=== PATIENT | female | born 1970 | race Caucasian/White ===

== ENCOUNTER 2020-10-04 07:13 | Emergency (ER) | payer BC, SELFPAY ==
--- NOTE | ~2020-10-04 | CT_ITS ---
EXAMINATION: CT soft tissue neck w con DATE: 10/04/2020 09:39 INDICATION: Pain with swallowing after vomiting. Evaluate for perforation. TECHNIQUE: Computed tomography (CT) of the neck was performed with 75 mL Omnipaque-350 intravenous co ntrast. The dose-length product was 656.03 mGy-cm. Automated exposure control and iterative reconstru ction technique were employed. COMPARISON: None FINDINGS: There is no evidence for esophageal perforation. No pneumonia mediastinum. No evidence for intramural hematoma of the esophagus. Distal esophagus not included. Visualized lung parenchyma is un remarkable. Unremarkable thyroid gland. No lymphadenopathy. Incidental note is made of bilateral gloria st implants. Mild mucosal thickening of the ethmoid and right sphenoid sinuses. No significant pleura l or pericardial effusion identified. IMPRESSION: 1. No acute abnormality of the neck. No evidence for esophageal perforation. Reviewed, dictated and finalized at location A. NESS PLANNER
--- NOTE | ~2020-10-04 | XR_ITS ---
EXAMINATION: XR chest 1V 10/04/2020 08:25 INDICATION: Chest pain with swallowing PROCEDURE: AP portable chest COMPARISON: No prior studies for comparison. FINDINGS: The lungs are clear. The cardiomediastinal silhouette is within normal limits. There are no pleural effusions. There is no pneumothorax suspected. IMPRESSION: 1: NO ACUTE CARDIOPULMONARY DISEASE. Reviewed, dictated and finalized at location A. R ELECTRIC INSTALLER
[2020-10-04 07:24] VITALS: BP 177/119; PULSE 97; RESP 20; TEMP 36.7; O2SAT 100
--- NOTE | 2020-10-04 08:04 | PC.NURSE ---
EMESIS X1 ON THE FLOOR
--- NOTE | 2020-10-04 08:09 | ECG_ITS ---
Measurements Intervals Bath Rate: 82 P: 57 CO: 165 QRS: 28 QRSD: 88 T: 39 QT: 378 QTc: 443 Interpretive Statements SINUS RHYTHM DELAYED PRECORDIAL R/S TRANSITION BORDERLINE ECG Electronically Signed On 10-04-2020 10:41:29 PHYSICAL ANTHROPOLOGIST by Garth Sexton D.O.
--- NOTE | 2020-10-04 08:11 | ED.GENADULT ---
HPI - General Adult General Chief complaint: Unspecified Stated complaint: throat pain after vomiting Time Seen by Provider: 10/04/20 07:36 Source: patient Mode of arrival: ambulatory Limitations: no limitations History of Present Illness HPI narrative: This patient is a 49 year old female with history of anxiety and hypertension who presents for evaluation of sore throat. She states she drank some margaritas last night. This morning she felt like she needed to vomiting so she make herself vomiting. AFter this episode of emesis she states her throat was making a funny sound when she swallows. She also reports pain when she swallows. She denies chest pain, abdominal pain , or fever. She had no sore throat previous to vomiting. She reports she is nervous and she hyperventilating while waiting so she develop vomiting in ER. Related Data Home Medications Medication Instructions Recorded Confirmed calcium carbonate 500 mg calcium 500 mg PO DAILY 08/27/19 08/04/20 (1,250 mg) tablet vitamin E 200 unit capsule 800 unit PO DAILY cap 08/27/19 08/04/20 Allergies Allergy/AdvReac Type Severity Reaction Status Date / Time No Known Allergies Allergy Verified 10/04/20 07:27 Review of Systems Review of Systems: All systems reviewed & are unremarkable except as noted in HPI and below Constitutional: Constitutional: Denies body ache(s), Denies chills and Denies fever(s) ENT: Denies nasal congestion, Reports odynophagia, Denies throat swelling and Denies tongue swelling Respiratory: Respiratory: Denies cough Gastrointestinal: Gastrointestinal: Denies abdominal pain PMFSH Past Medical History Medical History (Updated 10/04/20 @ 11:53 by Radha Villegas MD) Essential hypertension Hyperlipidemia Family History Family History (Updated 05/28/16 @ 23:21 by DOCTOR UNKNOWN) Mother Patient's mother is in good health Father Patient's father is in good health Sibling Patient's brother is in good health Social History Social History Smoking status: Never smoker Alcohol intake: never Gender identity (if verbalized by the patient): Female Exam Const: General: cooperative, well developed and anxious Nutritional Appearance: well nourished Orientation/consciousness: oriented to person, oriented to place and oriented to time Limitations: no limitations HENMT: Head: normocephalic and atraumatic Face and sinus: sinuses nontender and face symmetric Mouth: Yes lip normal, Yes tongue normal, Yes oropharynx normal and Yes moist mucous membranes Throat: posterior oropharynx normal, tonsils normal and uvula midline Neck: Neck: full ROM, no lymphadenopathy, trachea midline and supple Lymphatic: no lymphadenopathy noted Chest: Chest palpation & inspection: normal inspection of the chest Resp: Effort & Inspection: normal respiratory effort and able to speak in complete sentences Auscultation: clear to auscultation bilaterally Cardio: Rate: regular rate Rhythm: regular rhythm Skin: General skin exam: normal color Neuro: General: patient oriented x3 Sensory Exam: normal sensation Course Reevaluation(s) Reevaluation #1: I have discussed with patient that CT was unremarkable. She states she feels better aft GI cocktail. I discussed she may have small superficial tear but no perforation or hematoma. Date: 10/04/20 Time: 11:49 Vital Signs Vital signs: Vital Signs Temperature 98.0 F 10/04/20 07:24 Pulse Rate 97 10/04/20 07:24 Respiratory Rate 20 10/04/20 07:24 Blood Pressure 177/119 H 10/04/20 07:24 Pulse Oximetry 100 10/04/20 07:24 Temperature 98.0 F 10/04/20 07:24 Pulse Rate 90 10/04/20 12:15 Respiratory Rate 20 10/04/20 12:15 Blood Pressure 172/108 H 10/04/20 12:15 Pulse Oximetry 100 10/04/20 12:15 Medical Decision Making Vital Signs Vital Signs: Vital Signs Temperature 98.0 F 10/04/20 07:24 Pulse Rate 97 10/04/20 07:24 Respiratory Rate
[2020-10-04] MEDS: PANTOPRAZOLE SODIUM IV 40 MG VIAL IV PUSH (08:12)
[2020-10-04] MEDS: ONDANSETRON INJ 4 MG/2 ML VIAL IV PUSH (08:12)
[2020-10-04 08:28] LABS: Basophils Percent Auto 0.6 % (0.2-1.2); Eosinophils Absolute Auto 0.1 K/mm3 (0-0.3); Eosinophils Percent Auto 0.9 % (0-4.4); Hematocrit 42.7 % (37.0-47.0); Hemoglobin 15.6 g/dL (12.0-15.0); Immature Granulocyte Absolute 0.02 K/mm3 (0.00-0.031); Immature Granulocyte Percent A 0.3 % (0-0.5); Lymphocytes Absolute Auto 1.11 K/mm3 (0.9-3.2); Lymphocytes Percent Auto 17.1 % (18.3-44.2); Mean Corpuscular HGB Conc 36.5 g/dl (32-36); Mean Corpuscular Hemoglobin 34.5 pg (26-34); Mean Corpuscular Volume 94.5 fl (80-100); Monocytes Absolute Auto 0.4 K/mm3 (0.1-0.6); Monocytes Percent Auto 5.5 % (2.6-8.5); Neutrophils Absolute Auto 4.9 K/mm3 (1.3-6.7); Neutrophils Percent Auto 75.6 % (45.5-73.1); Platelet Count Result 332 k/mm3 (150-375); Red Blood Count 4.52 M/mm3 (4.2-5.4); Red Cell Distribution Width 11.9 % (11.5-14.5); White Blood Count 6.5 K/mm3 (4.5-10.0)
[2020-10-04 08:32] LABS: Alanine Aminotransferase 24 U/L (4-35); Albumin Level 4.4 g/dL (3.5-5.1); Alkaline Phosphatase 65 U/L (38-126); Anion Gap 13 mmol/L (8-16); Aspartate Amino Transferase 27 U/L (14-36); Bilirubin,Total 0.4 mg/dL (0.2-1.3); Blood Urea Nitrogen 14 mg/dL (7-17); Calcium 9.3 mg/dL (8.4-10.2); Carbon Dioxide 24 mmol/L (22-30); Chloride 102 mmol/L (98-107); Estimated CRCL calculation 83 ml/min; Estimated Glomerular Filt Rate > 60; Glucose 116 mg/dL (65-105); Potassium 4.1 mmol/L (3.4-5.0); Sodium 139 mmol/L (137-145)
[2020-10-04 10:02] VITALS: BP 187/115; PULSE 86; RESP 20; O2SAT 99
[2020-10-04] MEDS: BELLADONNA ALK/PHENOB ELIX 10 ML, MAG HYDROX/ALUMINUM HYD/SIMETH 30 ML, LIDOCAINE HCL 2... PO (10:58)
[2020-10-04 11:01] VITALS: BP 178/114; PULSE 96; RESP 20; O2SAT 100
[2020-10-04 12:15] VITALS: BP 172/108; PULSE 90; RESP 20; O2SAT 100
== END 2020-10-04 12:18 | disposition home or self-care (01) ==
PROVIDERS: Emergency Provider General Practice; PCP Internal Medicine
DX: R13.10 Dysphagia, unspecified (principal); E78.5 Hyperlipidemia, unspecified; I10 Essential (primary) hypertension
CPT/HCPCS: 36415; 70491; 71045; 80053; 85025; 93005; 96374; 96375; 99284; A9270; C9113; J2405; Q9967

== ENCOUNTER 2021-03-03 10:33 | Outpatient (CLI) | payer OTHER, SELFPAY ==
[2021-03-03 11:07] LABS: Anion Gap 0 mmol/L (8-16); Blood Urea Nitrogen 16 mg/dL (7-17); Calcium 9.4 mg/dL (8.4-10.2); Carbon Dioxide 33 mmol/L (22-30); Chloride 106 mmol/L (98-107); Cholesterol 237 mg/dL (0-200); Estimated Glomerular Filt Rate > 60; Glucose 102 mg/dL (65-105); HDL Direct 77 mg/dL; Potassium 4.2 mmol/L (3.4-5.0); Sodium 139 mmol/L (137-145); Triglycerides 223 mg/dL (<150)
[2021-03-03 11:17] LABS: LDL Cholesterol Direct 122 mg/dL
== END 2021-03-03 10:34 | disposition home or self-care (01) ==
LOC: ANHLAB 10:35
PROVIDERS: PCP Internal Medicine; Visit Provider Nurse Practitioner
DX: E78.5 Hyperlipidemia, unspecified (principal); I10 Essential (primary) hypertension
CPT/HCPCS: 36415; 80048; 80061

== ENCOUNTER 2021-04-08 13:37 | Outpatient (CLI) | payer OTHER, SELFPAY ==
--- NOTE | ~2021-04-08 | US_ITS ---
EXAMINATION: US abdomen limited EXAM DATE: 04/08/2021 14:08 INDICATION: Right upper quadrant pain. TECHNIQUE: Multiple grayscale and Doppler images of the abdomen right upper quadrant were obtained (b y a technologist who performed the scan) and subsequently reviewed. There is no prior study for kevon gonzalez. FINDINGS: The pancreatic head and body are normal in appearance. The pancreatic tail is not visualized. The l iver has normal echogenicity and contour. There are no focal liver lesions identified. There is no evidence of intrahepatic biliary duct dilation. Portal venous flow was seen in the hepatopedal, nor mal direction and has normal Doppler waveform. No right-sided hydronephrosis. Common bile duct measures 5 mm, which is normal. Gallbladder is contracted with multiple small gallst ones. There is significantly thickened gallbladder wall thickening up to 1 cm. Patient did tell techn ologist she did not eat today and typically patients who are nothing by mouth have somewhat distended gallbladder rather than contracted gallbladder. These findings can be seen with cholecystitis but no sonographic Hsieh's sign was demonstrated (is patient on pain medicine?). IMPRESSION: Contracted stone filled gallbladder with wall thickening, nonspecific in absence of sonog raphic Hsieh's sign. If patient on pain medicine, could still be acute cholecystitis. If not, could indicate chronic cholecystitis. Clinical correlation, consider HIDA scan. Reviewed, dictated and finalized at location A. IMPRESSION: Contracted stone filled gallbladder with wall thickening, nonspecif ic in absence of sonographic Hsieh's sign. If patient on pain medicine, could still be acute cholecystitis. If not, could indicate chronic cholecystitis. Cli nical correlation, consider HIDA scan.
== END 2021-04-08 13:38 | disposition home or self-care (01) ==
LOC: ANHIMG 13:39
PROVIDERS: PCP Internal Medicine; Visit Provider Nurse Practitioner
DX: R10.11 Right upper quadrant pain (principal)
CPT/HCPCS: 76705

== ENCOUNTER 2021-04-16 08:17 | Outpatient (CLI) | payer OTHER, SELFPAY ==
[2021-04-16 09:12] LABS: Hematocrit 41.6 % (37.0-47.0); Hemoglobin 14.5 g/dL (12.0-15.0); Mean Corpuscular HGB Conc 34.9 g/dl (32-36); Mean Corpuscular Hemoglobin 33.7 pg (26-34); Mean Corpuscular Volume 96.7 fl (80-100); Mean Platelet Volume 9.3 fl (7.4-10.4); Platelet Count Result 303 k/mm3 (150-375); Red Cell Distribution Width 11.9 % (11.5-14.5); White Blood Count 4.6 K/mm3 (4.5-10.0)
[2021-04-16 09:21] LABS: EDCOVIDSCREEN Negative (Negative)
[2021-04-16 09:40] LABS: Alanine Aminotransferase 12 U/L (4-35); Albumin Level 4.3 g/dL (3.5-5.1); Alkaline Phosphatase 58 U/L (38-126); Amylase 87 U/L (30-110); Aspartate Amino Transferase 24 U/L (14-36); Bilirubin,Total 0.3 mg/dL (0.2-1.3); Lipase 172 U/L (23-300)
== END 2021-04-16 08:18 | disposition home or self-care (01) ==
LOC: ANHSURGERY 08:21
PROVIDERS: PCP Internal Medicine; Visit Provider Surgery
DX: Z01.812 Encounter for preprocedural laboratory examination (principal); Z20.822 Contact with and (suspected) exposure to COVID-19; K80.10 Calculus of gallbladder with chronic cholecystitis without obstruction
CPT/HCPCS: 36415; 80076; 82150; 83690; 85027; 87426; C9803

== ENCOUNTER 2021-04-17 00:52 | Day surgery (SDC) | payer OTHER, SELFPAY ==
[2021-04-15 15:05] VITALS: BMI 30.1
[2021-04-17] VITALS (7 sets, daily range): BP systolic 127–159; BP diastolic 78–93; PULSE 73–87; RESP 16–18; TEMP 36; O2SAT 97–100
[2021-04-17] MEDS: ACETAMINOPHEN 500 MG TABLET 1000 MG PO (07:16)
[2021-04-17] MEDS: LACTATED RINGERS 1,000 ML 30 ML IV CONT ×2 (07:25→10:00)
[2021-04-17] MEDS: KETOROLAC 15 MG/ML VIAL (*BKC) IV PUSH (07:26)
--- NOTE | 2021-04-17 08:15 | WPDHPUPDATE1 ---
History and Physical Update Update Date/Time: 04/17/21 08:15 History and Physical has been reviewed, including an updated exam of the patient. There are NO changes in the patient's condition. Risks, benefits, and alternatives have been discussed and questions answered. Patient agrees to proceed with procedure.
--- NOTE | 2021-04-17 08:25 | WPDANESEPPF ---
Anes - Initial Pre Proc Eval Procedure: Operation Date: 04/17/21 08:30 Proposed Procedures p Laparoscopic Cholecystectomy with Possible Intraoperative Cholangiogram, Possible Open - Husam Mattson MD Date/Time: 04/17/21 08:25 Surgeon: Husam Mattson MD Pre Op Diagnosis: chronic cholecystitis with stones Patient Data Age: 50 Gender: F Height: 5 ft 3 in Weight: 76 kg Last Vital Signs Temp 96.8 F L 04/17/21 06:57 Pulse 73 04/17/21 06:57 Resp 16 04/17/21 06:57 BP 152/93 H 04/17/21 06:57 Pulse Ox 97 04/17/21 06:57 Allergies Allergy/AdvReac Type Severity Reaction Status Date / Time No Known Allergies Allergy Verified 04/17/21 07:10 Home Medications Medication Instructions Recorded Confirmed Type vitamin E 200 unit capsule 800 unit PO DAILY cap 08/27/19 04/17/21 History calcium carbonate 600 mg (1,500 1 cap PO DAILY cap 03/03/21 04/17/21 History mg)-vitamin D3 500 unit capsule lisinopril 10 mg tablet See Rx Instructions .ROUTE 03/03/21 04/17/21 Rx .COMPLEX #90 tablet bupropion HCl 300 mg 24 hr tablet, 300 mg PO QAM #90 tablet 03/09/21 04/17/21 Rx extended release Patient hx anesthesia problems: post op nausea/vomiting Family hx anesthesia problems: none PMFSH Past Medical History Medical History (Updated 04/15/21 @ 09:38 by Paola Clements) Depression Essential hypertension Hyperlipidemia Surgical History Surgical History History of abdominal hysterectomy History of microdiscectomy Family History Family History (Updated 04/15/21 @ 08:39 by Christel Wilks CMA) Mother Patient's mother is in good health Father Patient's father is in good health Sibling Patient's brother is in good health Other Cerebrovascular accident Social History Social History Smoking status: Never smoker Alcohol intake: never Alcohol use details: TWO DRINKS PER MONTH Substance use: current Substance use type: marijuana Last use: 04/15/21 Living arrangements: with family Gender identity (if verbalized by the patient): Female Spiritual care concerns: No Anes - Eval Final PreProcedure Day of Procedure 04/17/21 08:25 Patient weight: overweight Heart: regular rate and rhythm Lungs: clear to auscultation Airway: Mallampati scale class II Neurological: alert and oriented Last oral intake: >/= 8 hours ASA classification: II Emergent: no Anesthetic plan: proceed Anesthesia type and monitoring: general ETT and standard monitoring Informed Consent: The patient's anesthetic plan and its attendant risks and benefits were discussed with the patient/family/POA. Questions were solicited and answers provided to the satisfaction of the patient/family/POA.
[2021-04-17] MEDS: SCOPOLAMINE 1.5 MG PATCH TRANSDERM (08:30)
[2021-04-17] MEDS: ceFAZolin 2 GM/D5W 50 ML 2 GM/50 ML BAG IVPB (08:30)
[2021-04-17] MEDS: BUPIVACAINE/EPINEPHRINE 0.5% 10 ML VIAL 50 ML INFILTRATE (09:07)
--- NOTE | 2021-04-17 10:02 | P.OP_ITS ---
Procedure Note - Detailed Date of Procedure 04/17/21 Pre-op Diagnosis chronic cholecystitis with stones Post-op Diagnosis same Procedure Performed Laproscopic Cholecystectomy Surgeon Husam Mattson MD Hose Stripper GLENDA Mendoza, OR 1st assist Anesthesia general Description of Procedure Patient was seen preoperatively in the holding area and risks, benefits and alternatives confirmed. Patient was taken to the operating room and general anesthesia was induced. A time out was then preformed with the surgery team confirming patient and site of surgery. The abdomen was prepped and draped in the usual sterile fashion. Incision was made just below the umbilicus with an 11 blade knife. I could see one old suture from her previous abdominal surgery in the fascia just inferior to the umbilicus. After the above incision I was able to enter the peritoneum under direct vision with Metzenbaum scissors, dilate with a Peon, and then I was then able to slide in the Asif cannula through the fascial defect into the peritoneum. We used insufflated the balloon on the Asif and use this without any retention sutures for stay sutures this date. First under low flow and then under high flow the abdomen was insufflated with carbon dioxide never exceeding a pressure of 14. Three 5 mm trocars were then introduced under direct vision. The following trocars were introduced under direct vision: a 5 mm in the epigastrium and two 5 mm trocars along the right costal margin laterally in the subcostal area. There were some filmy omental adhesions to the underside of the gallbladder. These were taken down with blunt and sharp dissection using some Bovie cautery for hemostasis. We w ere able to dissect this completely away from the neck of the gallbladder. I then carefully used the L-shaped cautery and the [place] dissector to dissect out the triangle of Calot. I then was able to dissect out both the cystic duct and cystic artery and identify a window of safety. The gall bladder was grasped and the cystic duct and artery were dissected free and clipped with an 5 mm endo-clip insulation foreman. The cystic duct and artery were clipped with use of 2 clips on the patient's side 1 on the gallbladder side utilizing a 5 mm endoclip- insulation foreman. The cystic duct was then transected. The cystic artery was also transected at this point. The gall bladder was removed using electrocautery and then removed from the abdomen using a large 10 mm grasper via the umbilical incision. The trocars were removed visualizing hemostasis and the remaining gas evacuated. The large trocar site at the umbilicus was closed with use of an 0 PDS absorbable suture since she has a history of possible skin or subcutaneous reaction to some type of absorbable suture. Further local anesthetic was placed into each incision for postop pain control. The skin incisions were closed with subcuticular suture of 4-0 Monocryl. Surgical glue then was applied to all the incisions. Patient tolerated the procedure well was taken to the recovery room in good condition. EBL: 15 cc Implants none Packing No Pathology yes (Gallbladder) Complications No immediate complications Condition stable Disposition PACU
[2021-04-17] MEDS: diphenhydrAMINE HCl INJ 50 MG/ML VIAL 12.5 MG IV PUSH (10:18)
[2021-04-17] MEDS: MAG HYDROX/AL HYDROX/SIMETH 30 ML UDC PO (10:50)
[2021-04-17] MEDS: oxyCODONE HCL (*CRX) 5 MG TAB IR PO (11:06)
[2021-04-17] MEDS: ONDANSETRON INJ 4 MG/2 ML VIAL IV PUSH (12:04)
== END 2021-04-17 12:30 | disposition home or self-care (01) ==
PROVIDERS: PCP Internal Medicine; Visit Provider Surgery
PROC: 0FT44ZZ Resection of Gallbladder, Percutaneous Endoscopic Approach (ICD-10-PCS; CPT 47562; principal; 2021-04-17 08:30)
DX: K80.10 Calculus of gallbladder with chronic cholecystitis without obstruction (principal); I10 Essential (primary) hypertension; E78.5 Hyperlipidemia, unspecified; F32.9 Major depressive disorder, single episode, unspecified; F12.90 Cannabis use, unspecified, uncomplicated
CPT/HCPCS: 47562; 36415; 80076; 82150; 83690; 85027; 87426; 88304; A9270; C9803; J0360; J0690; J1100; J1170; J1200; J1885; J2250; J2405; J2704; J2710; J3010; J7120

== ENCOUNTER → 2023-04-06 09:41 | Outpatient (CLI) | payer OTHER, SELFPAY ==
--- NOTE | ~2023-04-06 | XR_ITS ---
Lumbosacral Spine: AP, oblique, and lateral views Clinical History: Pain Findings: The normal lordotic curve is maintained. No fracture identified. 3 mm anterolisthesis of L3 over L4 present. There is advanced degenerative disc narrowing at L4-L5 and L5-S1. There is moderate facet arthropathy throughout the lumbar spine. The sacroiliac joints are normally outlined. Impression: [id number] degenerative spondylosis, as above. 3 mm anterolisthesis of L3 over L4. Reviewed, dictated and finalized at location M. Impression: [id number] degenerative spondylosis, as above. 3 mm anterolisthesis of L3 over L4.
--- NOTE | ~2023-04-06 | XR_ITS ---
XR cervical spine 4-5V DATE: 04/06/2023 10:25 INDICATION: Neck pain TECHNIQUE: AP, open-mouth, lateral, swimmer views. COMPARISON: None FINDINGS: C1 and C2 are normally aligned and the odontoid process is intact. There is mild to moderate degenerative disc disease at C5-6. There is severe degenerative disc disease at C6-7. There is uncovertebral joint spurring, most prominent on the left at C5-6 and bilaterally at C6-7. No fracture or dislocation or locked facet or prevertebral soft tissue swelling is detected. IMPRESSION: Cervical spondylosis Reviewed, dictated and finalized at location [] IMPRESSION: Cervical spondylosis
== END ==
PROVIDERS: PCP Family Medicine; Visit Provider Family Medicine
DX: M47.817 Spondylosis without myelopathy or radiculopathy, lumbosacral region (principal); M43.16 Spondylolisthesis, lumbar region; M47.812 Spondylosis without myelopathy or radiculopathy, cervical region
CPT/HCPCS: 72050; 72110

== ENCOUNTER → 2023-04-20 08:51 | Outpatient (CLI) | payer OTHER, SELFPAY ==
--- NOTE | ~2023-04-20 | MR_ITS ---
MRI of the lumbar spine Clinical History: Back pain Technique: Axial T2-weighted images, and sagittal T1-weighted, T2-weighted, and and T2 fat-sat images were acquired. COMPARISON: 09/02/2017 Findings: There is no fracture or subluxation of the lumbar spine. Vertebral bodies maintain normal h eight and alignment. No suspicious bone marrow signal abnormality seen. At L1-L2, there is no disc bulge or herniation. There is mild to moderate facet arthropathy. No centr al canal stenosis or neural foraminal narrowing. At L2-L3, there is no disc bulge or herniation. There is moderate to advanced facet arthropathy. No c entral canal stenosis or neural foraminal narrowing. At L3-L4, there is mild diffuse disc bulge with advanced facet arthropathy. No barb central canal st enosis. Bilateral neural foramina are preserved. At L4-L5, there is advanced degenerative disc narrowing with mild diffuse disc bulge and moderate fac et arthropathy. No central canal stenosis. There is moderate bilateral neural foraminal narrowing, le ft worse than right. At L5-S1, there is moderate degenerative disc narrowing with mild diffuse disc bulge. There is mild f acet arthropathy. No spinal canal stenosis. There is moderate to severe bilateral neural foraminal na rrowing. Paravertebral soft tissues are unremarkable. Impression: Moderate degenerative spondylosis, particularly at L4-L5 and L5-S1, as detailed above. Reviewed, dictated and finalized at [facility]. Impression: Moderate degenerative spondylosis, particularly at L4-L5 and L5-S1, as detailed above.
== END ==
PROVIDERS: PCP Family Medicine; Visit Provider Family Medicine
DX: M54.31 Sciatica, right side (principal); M54.32 Sciatica, left side; G89.29 Other chronic pain; M54.50 Low back pain, unspecified; M47.896 Other spondylosis, lumbar region; M47.897 Other spondylosis, lumbosacral region
CPT/HCPCS: 72148

== ENCOUNTER 2025-06-13 08:38 | Outpatient (CLI) | payer OTHER, SELFPAY ==
--- NOTE | ~2025-06-13 | MM_ITS ---
EXAMINATION: MM diag trish implant BI w kimberly HISTORY: Capsular contracture TECHNIQUE: Additional 3-D tomosynthesis images of the breasts were performed and synthetic 2-D images were generated. CAD analysis was submitted and interpreted. COMPARISON: None BREAST PARENCHYMAL COMPOSITION: Not dense: There are scattered areas of fibroglandular density. FINDINGS: There are bilateral subpectoral saline implants. There are no suspicious masses, calcificat ions or architectural distortion in either breast to suggest malignancy. IMPRESSION: 1. No evidence for malignancy in either breast. 2. Routine yearly screening mammogram and regular clinical breast examination are recommended. BI-RADS Category 1: Negative Reviewed, dictated and finalized at location A. IMPRESSION: 1. No evidence for malignancy in either breast. 2. Routine yearly screening mammogram and regular clinical breast examination a re recommended. BI-RADS Category 1: Negative
== END 2025-06-13 08:39 | disposition home or self-care (01) ==
LOC: MICIMG 08:38
PROVIDERS: PCP Family Medicine; Visit Provider Family Medicine
DX: Z12.31 Encounter for screening mammogram for malignant neoplasm of breast (principal)
CPT/HCPCS: 77062; 77066; G0279

== ENCOUNTER 2025-09-03 12:37 | Outpatient (CLI) | payer OTHER, SELFPAY ==
--- NOTE | 2025-09-03 13:00 | NEURO_ITS ---
Impression: # Non- diabetic, with history of back surgery in the past, complains of lower back pain. # Pearl Nerve Conduction Study # Normal Needle/ EMG exam without evidence of neurogenic changes. # Clinical correlation recommended. Nerve Conduction Studies ?Stim Site NR Peak (ms) P-T Amp (?V) Site1 Site2 Delta-P (ms) Dist (cm) Vasile (m/s) Left Sup Fibular Anti Sensory (Ant Lat Mall) 14 cm ? 2.9 17.2 14 cm Ant Lat Mall 2.9 16.0 55 Right Sup Fibular Anti Sensory (Ant Lat Mall) 14 cm ? 3.1 17.1 14 cm Ant Lat Mall 3.1 16.0 52 Left Sural Anti Sensory (Lat Mall) Calf ? 4.0 13.0 Calf Lat Mall 4.0 16.0 40 Right Sural Anti Sensory (Lat Mall) Calf ? 3.8 13.0 Calf Lat Mall 3.8 16.0 42 ?Stim Site NR Onset (ms) O-P Amp (mV) Site1 Site2 Delta-0 (ms) Dist (cm) Vasile (m/s) Left Peroneal Motor (Vastus Med) Ankle ? 4.2 3.2 Popit Ankle 8.4 37.0 44 Popit ? 12.6 2.8 Right Peroneal Motor (Vastus Med) Ankle ? 4.2 3.6 Popit Ankle 7.8 36.0 46 Popit ? 12.0 3.4 Left Tibial Motor (Abd Christopher Brev) Ankle ? 4.8 5.8 Knee Ankle 7.8 38.0 49 Knee ? 12.6 4.6 Right Tibial Motor (Abd Christopher Brev) Ankle ? 4.8 6.9 Knee Ankle 7.9 36.0 46 Knee ? 12.7 5.7 F Wave Studies ?NR F-Lat (ms) L-R F-Lat (ms) Left Peroneal (Mrkrs) (EDB) ? 47.31 1.56 Right Peroneal (Mrkrs) (EDB) ? 45.74 1.56 Left Tibial (Mrkrs) (Abd Hallucis) ? 49.94 0.21 Right Tibial (Mrkrs) (Abd Hallucis) ? 49.73 0.21 Electromyography ?Side Muscle Nerve Root Ins Act Fibs Amp Dur Recrt Comment Right AntTibialis Dp Br Fibular L4-5 Nml Nml Nml Nml Nml Right Gastroc Tibial S1-2 Nml Nml Nml Nml Nml Right Fibularis Long Sup Br Fibular L5-S1 Nml Nml Nml Nml Nml Right Flex Dig Long Tibial L5-S2 Nml Nml Nml Nml Nml Right Ext Dig Brev Dp Br Fibular L5, S1 Nml Nml Nml Nml Nml Right QuadratusFem QuadFemoris L4-5, S1 Nml Nml Nml Nml Nml Left AntTibialis Dp Br Fibular L4-5 Nml Nml Nml Nml Nml Left Gastroc Tibial S1-2 Nml Nml Nml Nml Nml Left Fibularis Long Sup Br Fibular L5-S1 Nml Nml Nml Nml Nml Left Flex Dig Long Tibial L5-S2 Nml Nml Nml Nml Nml Left Ext Dig Brev Dp Br Fibular L5, S1 Nml Nml Nml Nml Nml Left QuadratusFem QuadFemoris L4-5, S1 Nml Nml Nml Nml Nml
--- OUTSIDE RECORDS SUMMARY | 2025-09-03 14:20 | XMS_ITS | Clinical Summary ---
Author Organization [facility] Address [address] [place] [address] Care Team Providers Care Medical Office Scheduler Name Role Phone Peter Randall MD Primary Care Provider [phone] Source Comments [facility],non-[facility] Affiliates and Associated Physician Practices is amultiple site organization consisting of ambulatory clinics and hospital sitesin [place], [place], [place]. This disclosure is being madepursuant to the Care Everywhere program and may not contain all information available regarding this patient. Last updated 18.[facility] Allergies Active Allergy Reactions Criticality Noted Date Comments Adhesive Sensitivity Rash Medium 03/27/2019 Medications * Be aware that medications may not be up to date on this document. Alwaysverify current medications with the patient. phentermine (ADIPEX-P) 37.5 MG capsule Take 1 (one) capsule by mouth once daily 1 9 Active topiramate (TOPAMAX) 50 MG tablet Take 1 (one) tablet by mouth once daily 5 9 Active Probiotic Product (PROBIOTIC ADVANCED PO) Take 1 tablet by mouth once daily Active vitamin E (VITAMIN E BLEND) 200 UNIT capsule Take 2 (two) capsules by mouth once daily Active lisinopril (PRINIVIL; ZESTRIL) 10 MG tablet Take 1 (one) tablet by mouth once daily Active hydroCHLOROthia zide (Hydrodiuril) 25 MG tablet Take 1 (one) tablet by mouth once daily 4 Active lidocaine (Xylocaine) 5 % ointment Apply 1 Each to affected area 4 times daily 60 g 5 Active Additional Information Patient taking differently: (No dose reported), Topical 4 TIMES DAILY, Reported on 01/25/2025 Social History Tobacco Use Types Packs/Day Years Used Date Smoking Tobacco: Never Smokeless Tobacco: Never Tobacco Cessation:Counseling Given: Not Answered Alcohol Use Standard Drinks/Week Comments Yes 0 (1 standard drink = 0.6 oz pur e alcohol) PHQ-2 Answer Date Recorded Patient Health Questionnaire-2 Score 0 09/20/2024 Comments No Sex and Gender Information Value Date Recorded Sex Assigned at Not on file Legal Sex Female 9:21 AM CDT Gender Identity Not on file Sexual Orientation Not on file Last Filed Vital Signs Vital Sign Reading Time Taken Comments Blood Pressure 120/84 01/25/2025 9:57 AM CDT Pulse - - Temperature - - Respiratory Rate - - Oxygen Saturation - - Inhaled Oxygen Concentration - - Weight 73.9 kg (163 lb) 01/25/2025 9:57 AM CDT Height 160 cm (5' 3) 01/25/2025 9:57 AM CDT Body Mass Index 28.87 01/25/2025 9:57 AM CDT Plan of Treatment Upcoming Encounters Date Type Department Care Team (Late st Contact Info) Description 09/24/2025 10:00 AM FISH CHECKER Office Visit [facility]STE[facility] [address] [place] [address], [address] [place] [phone] Husam Thomas MD [address] [place] [address] [place] [phone] Health Maintenance Due Date Last Done Comments COLOGUARD (AGES 45-75) - COL ON CA SCREENING 1972 COLON MONITORING 1972 COLONOSCOPY - COLON CA SCREENING 1972 CT COLONOGRAPHY - COLON CA SCREENING 1972 Colorectal Cancer Screening 1972 FIT - COLON CA SCREENING 1972 FLEX SIG - COLON CA SCREENING 1972 LIPID TESTING 1972 MAMMOGRAM 1972 HIV SCREENING 1987 HEPATITIS C SCREENING 12/09/1990 DTAP/TDAP/TD VACCINES (1 - Tdap) 1991 HEPATITIS B VACCINE (1 of 3 - 19+ 3-dose series) 1991 PNEUMOCOCCAL VACCINE 50+ (1 of 1 - PCV) 2022 ZOSTER VACCINE (1 of 2) 2022 SCREENING FOR DIABETES 09/20/2024 DEPRESSION SCREENING 10/31/2024 09/20/2024 COVID-19 VACCINE (1 - 2023-2 5 season) 2025 INFLUENZA VACCINE (#1) 2025 PAP with HPV 09/20/2029 09/20/2024, 03/02/2019 HIB VACCINE Aged Out No longer eligi ble based on patient's age to complete this topic HPV VACCINE Aged Out No longer eligi ble based on patient's age to complete this topic MENINGOCOCCAL (Group B) VACCINE SHARED DECISION-MAKING Aged Out No longer eligible based on patient's age to complete this topic MENINGOCOCCAL GROUPS A/C/Y/W VACCINE Aged Out No longer eligible b ased on patient's age to complete this topic Procedures Procedure Name Priority Date/Time Associated Diagnosis Comments PAP IG LB+HPV APTIMA Routine 09/20/2024 11:57 AM FISH CHECKER Well woman exam with routine gynecological exam from Last 3 Months or Most Recently Relevant to Health Maintenance Results * PAP IG LB+HPV APTIMA (09/20/2024 11:57 AM FISH CHECKER) Diagnosis Comment [facility] ACCOUNT BILL Comment:NEGATIVE FOR INTRAEP ITHELIAL LESION OR MALIGNANCY. Specimen Adequacy Comment [facility] ACCOUNT BILL Comment:Satisfactory for cheli luation. No endocervical component is identified. Clinician Provided ICD10 Comment [facility] ACCOUNT BILL Comment:Z01.419 Performed by Comment [facility] ACCOUNT BILL Comment:Dave Liao, Cyto technologist (ASCP) Comment . [facility] ACCOUNT BILL Note Comment [facility] ACCOUNT BILL Comment: The Pap smear is a screening test designed to aid in the detection of premalignant and malignant conditions of the uterine cervix. It is not a diagnostic procedure and should not be used as the sole means of detecting cervical cancer. Both false-positive and false-negative reports do occur. IGLBP CPT Code Automation Comment [facility] ACCOUNT BILL Comment: This liquid based ThinPrep(R) pap test was screened with the use of an image guided system. Human papillomavirus Aptima Negative Negative [facility] ACCOUNT BILL Comment: This nucleic acid amplification test detects fourteen high-risk HPV types (16,18,31,33,35,39,45,51,52,56,58,59,66,68) without differentiation. Pathology/Cytolog y ENTIRE VAGINA / Unknown 09/20/2024 11:57 AM FISH CHECKER 09/20/2024 Comment:Vaginal Release to p a Narrative [facility] ACCOUNT BILL - 09/28/2024 3:08 PM FISH CHECKER Performed at: - [facility] [address] [id number] Real Estate Developer: Hattie Barreto MD, Phone: [phone] Performed at: - [facility] [id number] Real Estate Developer: Hattie Barreto MD, Phone: [phone] Specimen Comment: [id number] Specimen Comment: No. of containers..01 ThinPrep Vial Husam Thomas MD LAB - PATHOLOGY/CYTOLOGY OR DERABLES Final Result Performing Organization Address City/State/[facility] Co de Phone Number [facility] ACCOUNT BILL [address] [place] [address] from Last 3 Months or Most Recently Relevant to Health Maintenance Insurance [facility] Care Teams Medical Office Scheduler Relationship Specialty Start Date End Date Peter Randall MD [address] [place] [address] PCP - General Family Medicine 09/20/24
--- OUTSIDE RECORDS SUMMARY | 2025-09-03 14:20 | XMS_ITS | Encounter Summary ---
Author Organization [facility] Address [address] [place] [address] Care Team Providers Care Night Filler Name Role Phone Vale Chowdary NP Primary Care Provider [phone] Encounter Details Date Type Department Care Team (Late st Contact Info) Description 04/05/2023 Therapy Plan [facility] [address] [place] [address] Annel Khan, PT [address] [place] [address] Social History Tobacco Use Types Packs/Day Years Used Date Smoking Tobacco: Never Assessed Comments Unknown Sex and Gender Information Value Date Recorded Sex Assigned at Not on file Legal Sex Female 6:31 PM CDT Gender Identity Not on file Sexual Orientation Not on file documented as of this encounter Plan of Treatment Not on file documented as of this encounter Visit Diagnoses Not on filedocumented in this encounter Care Teams Night Filler Relationship Specialty Start Date End Date Vale Chowdary NP [address] [place] [address] PCP - General Nurse Practitioner Family 04/06/23 documented as of this encounter
--- OUTSIDE RECORDS SUMMARY | 2025-09-03 14:20 | XMS_ITS | Clinical Summary ---
Author Organization [facility] Address [address] [place] [id number] Care Team Providers Care Rag Production Worker Name Role Phone Vale Chowdary NP Primary Care Provider [phone] Medications No known medications Active Problems No known active problems Social History Tobacco Use Types Packs/Day Years Used Date Smoking Tobacco: Never Assessed Comments Unknown Sex and Gender Information Value Date Recorded Sex Assigned at Not on file Legal Sex Female 6:31 PM CDT Gender Identity Not on file Sexual Orientation Not on file Plan of Treatment Health Maintenance Due Date Last Done Comments Cervical Cancer Screening Pa p Smear (Age 30 to 64) Every 3 Years 1972 Colorectal Cancer Screening Colonoscopy (10 Years) 1972 Annual Physical 1975 Hepatitis C 1990 DTaP, Tdap and Td Vaccines ( 1 - Tdap) 1991 Hepatitis B Vaccines (1 of 3 - 19+ 3-dose series) 1991 Cervical Cancer Screening Pa p with HPV Testing (Age 30 to 64) Every 5 Years 2002 Cervical Cancer Screening with HPV 2002 Mammogram Screening 2012 Pneumococcal Vaccine: 50+ Ye ars (1 of 1 - PCV) 2022 Zoster Vaccines (1 of 2) 2022 COVID-19 Vaccine (2024-2 6 season) 2025 Influenza Adult (#1) 2025 Hepatitis A Vaccines Aged Out No long er eligible based on patient's age to complete this topic Meningococcal B Vaccine Aged Out No l onger eligible based on patient's age to complete this topic Meningococcal Vaccine Aged Out No michael barbie eligible based on patient's age to complete this topic RSV Immunizations Under 20 Months Aged Out No longer eligible based on patient's age to complete this topic Insurance [employer] Care Teams Rag Production Worker Relationship Specialty Start Date End Date Vale Chowdary NP [address] [place] [address] PCP - General Nurse Practitioner Family 04/06/23
== END 2025-09-03 12:38 | disposition home or self-care (01) ==
PROVIDERS: PCP Family Medicine; Visit Provider Nurse Practitioner Family
DX: M54.40 Lumbago with sciatica, unspecified side (principal)
CPT/HCPCS: 95886; 95910

== ENCOUNTER 2025-10-03 10:02 | Outpatient (CLI) | payer OTHER, SELFPAY ==
--- NOTE | ~2025-10-03 | XR_ITS ---
EXAMINATION: XR hip BI wo pelvis, 10/03/2025 10:10 [employer] HISTORY: M25.559 - Pain in unspecified hip COMPARISON: No comparisons available. Findings: No acute fracture or malalignment. No significant degenerative changes. Soft tissues unremarkable. Impression: No acute fracture or malalignment. Reviewed, dictated and finalized at location [facility]. ROAD CONDU[employer] Impression: No acute fracture or malalignment.
--- NOTE | ~2025-10-03 | XR_ITS ---
XR lumbar spine 2-3V Indication: M96.1 - Postlaminectomy syndrome, not elsewhere classified Comparison: None Findings: Grade 1 anterolisthesis of L3 on L4, no fracture. Moderate to severe loss of disc at L4-5 and L5-S1. Soft tissues unremarkable Impression: No acute abnormality. Reviewed, dictated and finalized at location [employer] Impression: No acute abnormality.
== END 2025-10-03 10:03 | disposition home or self-care (01) ==
LOC: MICIMG 10:04
PROVIDERS: PCP Family Medicine; Visit Provider Family Medicine
DX: M43.16 Spondylolisthesis, lumbar region (principal); R29.890 Loss of height; M96.1 Postlaminectomy syndrome, not elsewhere classified; M25.559 Pain in unspecified hip
CPT/HCPCS: 72100; 73521